=== PATIENT | male | born 1975 | race Caucasian/White ===

== ENCOUNTER → 2017-03-04 | Day surgery (SDC) | payer OTHER ==
[2017-03-04 11:38] LABS: CREATININE 1.3 mg/dL (0.7-1.2)
== END | disposition home or self-care (01) ==
LOC: FAS 09:45
PROVIDERS: Anesthesiology
DX: K21.0 Gastro-esophageal reflux disease with esophagitis (principal); K64.1 Second degree hemorrhoids; K29.50 Unspecified chronic gastritis without bleeding; K58.9 Irritable bowel syndrome, unspecified; I10 Essential (primary) hypertension; I34.1 Nonrheumatic mitral (valve) prolapse; G47.30 Sleep apnea, unspecified; Z87.820 Personal history of traumatic brain injury; R41.3 Other amnesia
CPT/HCPCS: 36415; 80048; 88305; J1100; J2704